=== PATIENT | female | born 1970 | race Caucasian/White ===

== ENCOUNTER 2017-03-04 13:56 | Emergency (ER) | payer OTHER ==
[2017-03-04 14:05] VITALS: BP 128/61; PULSE 83; TEMP 98.2; BMI 27.3
--- NOTE | 2017-03-04 15:43 | PDOC ---
History of Present Illness - General Chief Complaint: Chest Pain Stated Complaint: CHEST DISCOMFORT Time Seen by Provider: 03/04/17 15:32 - History of Present Illness Initial Comments: 03/04/17 16:38 Patient is a 46 year old female with a history of asthma who presents with chest discomfort. She states that over the past few days, she has been experiencing chest tightness that she describes as a sensation of needing to burp. She reports that earlier this morning she developed moderate to severe burning sensation in her chest after drinking coffee prompting her visit to the ED today. She reports that since that time she now has burning sensation from her epigastrium to her chest. She denies any other radiation of her pain. She denies fevers, chills, SOB, abdominal pain, nausea, vomiting, or changes with urination or bowel movements. Past History - Past Medical History Allergies/Adverse Reactions: Allergies Allergy/AdvReac Type Severity Reaction Status Date / Time No Known Drug Allergies Allergy Verified 03/04/17 14:03 Home Medications: Ambulatory Orders Albuterol Sulfate [Proair Hfa -] 1 - 2 inh PO PRN PRN 07/28/15 Amoxicillin - [Amoxicillin 500mg Capsule -] 500 mg PO DAILY 07/28/15 Famotidine [Pepcid -] 20 mg PO DAILY PRN #7 tablet 03/04/17 Anemia: No Asthma: Yes Cancer: No Cardiac Disorders: No CVA: No COPD: No CHF: No Dementia: No Diabetes: No GI Disorders: No Disorders: No HTN: No Hypercholesterolemia: No Liver Disease: No Seizures: No Thyroid Disease: No - Surgical History Abdominal Surgery: No Appendectomy: No Cardiac Surgery: No Cholecystectomy: No Lung Surgery: No Neurologic Surgery: No Orthopedic Surgery: No - Psycho/Social/Smoking Cessation Hx Suicidal Ideation: No Smoking History: Never smoked Have you smoked in the past 12 months: No Hx Alcohol Use: No Drug/Substance Use Hx: No Substance Use Type: None Hx Substance Use Treatment: No Review of Systems - Review of Systems Constitutional: No: Chills, Fever HEENTM: No: Nose Congestion, Throat Pain Respiratory: No: Cough, Shortness of Breath Cardiac (ROS): Yes: Chest Tightness. No: Palpitations ABD/GI: No: Constipated, Diarrhea, Nausea, Vomiting : No: Burning, Dysuria, Frequency Integumentary: No: Rash Neurological: No: Headache, Tingling, Weakness *Physical Exam - Vital Signs Last Vital Signs Temp Pulse Resp BP Pulse Ox 98.2 F 83 18 128/61 100 03/04/17 14:03 03/04/17 14:03 03/04/17 14:03 03/04/17 14:03 03/04/17 14:03 - Physical Exam Comments: 03/04/17 17:00 General Appearance: Nourished. No Apparent Distress HEENT: No Pharyngeal Erythema, Tonsillar Exudate, Tonsillar Erythema Respiratory/Chest: Lungs Clear, Normal Breath Sounds. No Crackles, Rales, Rhonchi, Wheezing Cardiovascular: Regular Rhythm, Regular Rate. No Murmur, Gallop/S3, Gallop/S4 Gastrointestinal/Abdominal: Normal Bowel Sounds, Soft. No Guarding, Rebound, Tenderness Extremity: Normal Capillary Refill Integumentary: Normal Color, Dry, Warm Neurologic: Fully Oriented, Alert, Normal Mood/Affect, Normal Response ED Treatment Course - LABORATORY CBC & Chemistry Diagram: 03/04/17 16:25 03/04/17 16:25 Medical Decision Making - Medical Decision Making 03/04/17 17:01 Patient is a 46 year old female with a history of asthma who presents with chest discomfort. Given the patient's history and benign physical exam, her symptoms are most consistent with GERD. However it is reasonable to consider ACS work up. We will obtain a EKG, CBC, CMP and troponin to evaluate for ACS. Low suspicion for pericarditis, pneumonia, or PE. 03/04/17 17:12 Patient's labs and EKG are unremarkable and chest radiograph preliminarily read in the ED as normal. We discussed the results with the patient and she is comfortable being discharged home with anti-acids. She will follow up with her primary care provider. *DC/Admit/Observation/Transfer Diagnosis at time of Disposition: GERD (gastroesophageal reflux disease) Qualifiers: Esophagitis presence: esophagitis presence not specified Qualified Code(s): K21.9 - Gastro-esophageal reflux disease without esophagitis - Discharge Dispostion Disposition: HOME Condition at time of disposition: Improved - Prescriptions Prescriptions: Famotidine [Pepcid -] 20 mg PO DAILY PRN #7 tablet PRN Reason: Dyspepsia - Referrals Referrals: Boogie Goff MD [Primary Care Provider] - - Patient Instructions Printed Discharge Instructions: DI for Gastroesophageal Reflux Disease (GERD) Additional Instructions: Please return to the ER if you experience concerning or worsening symptoms. Please call to follow up with your primary care provider to discuss your ER visit. - Attestations Physician Attestion: 03/04/17 17:16 I, Dr. Boogie Nettles, attest that this document has been prepared under my direction and personally reviewed by me in its entirety. I further attest, that it accurately reflects all work, treatment, procedures and medical decision -making performed by me.
[2017-03-04] MEDS ORDERED: MAG HYDROX/AL HYDROX/SIMETH 30 ML UNIT-DOSE CUP PO ONE (16:14)
--- NOTE | 2017-03-04 16:14 | PDOC ---
Attending Attestation - Resident Resident Name: Boogie Nettles - ED Attending Attestation I have performed the following: I have examined & evaluated the patient, The case was reviewed & discussed with the resident, I agree w/resident's findings & plan, Exceptions are as noted - HPI HPI: 03/04/17 16:12 Agree with the resident's HPI as documented in the electronic medical record. - Physicial Exam PE: 03/04/17 16:12 Agree with the resident's physical examination as documented in the electronic medical record. - Medical Decision Making 03/04/17 16:12 46-year-old female with no reported past medical history, not a tobacco user and no family history of coronary artery disease who presents the emergency Department with complaints of mid chest pain described as burning that happened shortly after drinking coffee this morning; she has no associated symptoms. Differential diagnosis includes but is not limited to: GERD, atypical presentation of ACS, peptic ulcer disease. Plan: 1. EKG 2. Labs 3. Pepcid and Maalox 4. Chest x-ray 5. Observe and reevaluate 03/04/17 17:12 Addendum: Labs are reviewed and are noted in the EMR. EKG shows normal sinus rhythm at 65 bpm with normal axis, intervals and no acute ST segment changes. Chest x-ray is negative. The patient is feeling improved. We'll discharge home with Rx for Pepcid, follow-up with primary care physician and return to the emergency department if symptoms persist, worsen, or new symptoms arise.
[2017-03-04] MEDS ORDERED: FAMOTIDINE 20 MG/50 ML IVPB 50 ML IVPB ONE ×2 (16:15→16:23)
[2017-03-04] MEDS ORDERED: MAG HYDROX/AL HYDROX/SIMETH 30 ML UNIT-DOSE CUP ONE (16:23)
[2017-03-04 16:29] LABS: BASOPHIL 0.7 % (0-2.0); EOSINOPHIL 0.5 % (0-4.5); MCH 29.1 pg (25.7-33.7); MCHC 33.3 g/dl (32.0-36.0); MEAN CELL VOLUME 87.5 fl (80-96); MEAN PLT VOLUME 8.1 fl (7.5-11.1); PLATELET COUNT 265 K/MM3 (134-434); RDW 14.5 % (11.6-15.6); WHITE BLOOD COUNT 7.6 K/mm3 (4.0-10.0)
[2017-03-04 16:53] LABS: ANION GAP 9 (8-16); BILIRUBIN,TOTAL 0.3 mg/dL (0.2-1.0); CALCIUM 8.9 mg/dL (8.5-10.1); CO2 27 mmol/L (21-32); CREATININE 0.6 mg/dL (0.55-1.02); GLUCOSE,RANDOM 93 mg/dL (74-106); SGOT/AST 17 U/L (15-37); SGPT/ALT 15 U/L (12-78); TOT PROT 7.4 g/dl (6.4-8.2)
[2017-03-04 16:55] LABS: ALK PHOS 82 U/L (45-117); TROPONIN I < 0.02 ng/ml (0.00-0.05)
--- NOTE | 2017-03-05 16:57 | EKG ---
Test Reason : Blood Pressure : / mmHG Vent. Rate : 071 BPM Atrial Rate : 071 BPM P-R Int : 146 ms QRS Dur : 088 ms QT Int : 422 ms P-R-T Axes : 066 059 048 degrees QTc Int : 458 ms NORMAL SINUS RHYTHM WITH SINUS ARRHYTHMIA NORMAL ECG NO PREVIOUS ECGS AVAILABLE CORELATE CLINICALLY Confirmed by KALEB FLORES MD ([id number]) on 03/05/2017 4:57:20 PM Referred By: Confirmed By:KALEB FLORES MD
--- NOTE | 2017-03-06 14:48 | EKG ---
Test Reason : Blood Pressure : / mmHG Vent. Rate : 069 BPM Atrial Rate : 069 BPM P-R Int : 148 ms QRS Dur : 086 ms QT Int : 434 ms P-R-T Axes : 068 061 054 degrees QTc Int : 465 ms NORMAL SINUS RHYTHM WITH SINUS ARRHYTHMIA NORMAL ECG WHEN COMPARED WITH ECG OF 04-MAR-2017 14:17, NO SIGNIFICANT CHANGE WAS FOUND Confirmed by ALBINA ÓLPEZ MD ([id number]) on 03/06/2017 2:48:40 PM Referred By: Confirmed By:ALBINA LÓPEZ MD
== END 2017-03-04 18:19 | disposition home or self-care (01) ==
LOC: JER 13:56
PROC: 3E033GC Introduction of Other Therapeutic Substance into Peripheral Vein, Percutaneous Approach (ICD-10-PCS; principal; 2017-03-04)
DX: K21.9 Gastro-esophageal reflux disease without esophagitis (principal); J45.909 Unspecified asthma, uncomplicated
CPT/HCPCS: 36415; 71020-TC; 80053; 82550; 84484; 85025; 93005; 93010; 99284-25